=== PATIENT | female | born 1985 | race Caucasian/White ===

== ENCOUNTER 2019-02-11 21:31 | Emergency (ER) | payer OTHER ==
[2019-02-11] MEDS: Sodium Chloride 0.9% 10 ML Syringe FLUSH PRN (22:44)
[2019-02-11] MEDS: HYDROmorphone 1 MG/ML Syringe IVPUSH ONE (22:44)
[2019-02-11] MEDS: diazePAM 5 MG/ML MDV IVPUSH ONE (23:20)
--- NOTE | 2019-02-11 23:36 | EDM.PDOC ---
ED HPI GENERAL MEDICAL PROBLEM - General Chief Complaint: General Stated Complaint: neck and shoulder pain Time Seen by Provider: 02/11/19 22:50 Source of Information: Reports: Patient History Limitations: Reports: No Limitations - History of Present Illness INITIAL COMMENTS - FREE TEXT/NARRATIVE: Pt. presents to ER with complaints of severe neck and R shoulder blade pain. Pt. states that she has had issues with radiculopathy and cervical spinal pain in the past. She sees a chiropractor for this. She denies any trauma. She states that the discomfort started when she was opening a jar at work. No falls or other accidents. Denies any fever or chills. She states that the discomfort is located only in the neck and R upper extremity. Onset: Today Onset Date: 02/11/19 Location: Reports: Neck, Upper Extremity, Right Quality: Reports: Sharp Severity: Severe Improves with: Reports: Cold Therapy Worsens with: Reports: Movement Right Neck Pain Score (Numeric/FACES): 9 - Related Data Allergies Allergy/AdvReac Type Severity Reaction Status Date / Time No Known Allergies Allergy Verified 02/11/19 22:34 Home Meds: Home Meds . [No Known Home Meds] 02/11/19 [History] Past Medical History Musculoskeletal History: Reports: Back Pain, Chronic - Past Surgical History Female Surgical History: Reports: Section Social & Family History - Tobacco Use Smoking Status *Q: Former Smoker Used Tobacco, but Quit: Yes Month/Year Tobacco Last Used: 4 years ED ROS GENERAL - Review of Systems Review Of Systems: See Below Constitutional: Reports: No Symptoms HEENT: Reports: No Symptoms Respiratory: Reports: No Symptoms Cardiovascular: Reports: No Symptoms Endocrine: Reports: No Symptoms GI/Abdominal: Reports: No Symptoms : Reports: No Symptoms Musculoskeletal: Reports: Neck Pain, Shoulder Pain Skin: Reports: No Symptoms Neurological: Reports: Paresthesia (R shoulder posteriorly. Burning sensation.) Psychiatric: Reports: No Symptoms Hematologic/Lymphatic: Reports: No Symptoms Immunologic: Reports: No Symptoms ED EXAM, GENERAL - Physical Exam Exam: See Below Exam Limited By: No Limitations General Appearance: Alert, WD/WN, Moderate Distress Eye Exam: Bilateral Eye: EOMI, PERRL Throat/Mouth: Normal Inspection, Normal Lips, Normal Teeth, Normal Oropharynx Head: Atraumatic, Normocephalic Neck: Limited Range of Motion, Tender Lateral (R sided primarily) Respiratory/Chest: No Respiratory Distress, Lungs Clear, Normal Breath Sounds, No Accessory Muscle Use, Chest Non-Tender Cardiovascular: Normal Peripheral Pulses, Regular Rate, Rhythm, No Edema, No Gallop, No JVD, No Murmur, No Rub Peripheral Pulses: 4+: Radial (L), Radial (R) GI/Abdominal: Soft, Non-Tender, No Organomegaly, No Distention, No Mass (Female) Exam: Deferred Rectal (Female) Exam: Deferred Back Exam: Decreased Range of Motion, Muscle Spasm Extremities: Normal Inspection, No Pedal Edema, Normal Capillary Refill, Limited Range of Motion Neurological: Alert, Oriented, CN II-XII Intact, Normal Cognition, Normal Gait, Normal Reflexes, Other (brachioradialis reflexes are 2+ bilaterally) Course - Vital Signs Last Recorded V/S: Last Vital Signs Temp 37.1 C 02/11/19 22:34 Pulse 72 02/11/19 22:34 Resp 22 H 02/11/19 22:34 BP 119/75 02/11/19 22:34 Pulse Ox 98 02/11/19 22:34 - Orders/Labs/Meds Orders: Active Orders 24 hr Category Date Time Status Acetaminophen/HYDROcodone [Take Home: Acetaminophen/ Med 02/11/19 23:36 Once HYDROcodone 325-10MG] 1 packet PO ONETIME ONE Cyclobenzaprine [Take Home: Cyclobenzaprine 10 MG, 4 Med 02/11/19 23:36 Once Tab Pack] 1 packet PO ONETIME ONE Sodium Chloride 0.9% [Saline Flush] Med 02/11/19 22:16 Active 10 ml FLUSH ASDIRECTED PRN Peripheral IV Insertion Adult [OM.PC] Routine Oth 02/11/19 22:16 Ordered Medication Orders Sodium Chloride (Saline Flush) 10 ml FLUSH ASDIRECTED PRN PRN Reason: Keep Vein Open Last Admin: 02/11/19 22:44 Dose: 10 ml Meds: Medications Generic Name Dose Route Start Last Admin Trade Name Freq PRN Reason Stop Dose Admin Sodium Chloride 10 ml 02/11/19 22:16 02/11/19 22:44 Saline Flush FLUSH 10 ml ASDIRECTED PRN Administration Keep Vein Open Discontinued Medications Generic Name Dose Route Start Last Admin Trade Name Freq PRN Reason Stop Dose Admin Diazepam 5 mg 02/11/19 23:14 02/11/19 23:20 Valium IVPUSH 02/11/19 23:15 5 mg STAT ONE Administration Hydromorphone HCl 1 mg 02/11/19 22:17 02/11/19 22:44 Dilaudid IVPUSH 02/11/19 22:18 1 mg ONETIME ONE Administration Departure - Departure Time of Disposition: 23:42 Disposition: Home, Self-Care 01 Clinical Impression: Radiculopathy of cervical spine - Discharge Information Instructions: Acetaminophen; Hydrocodone tablets or capsules, Cyclobenzaprine tablets, Cervical Strain and Sprain Rehab-SportsMed Referrals: PCP,Not In Area [Primary Care Provider] - Forms: ED Department Discharge Additional Instructions: [place] 10/325mg 1 every 4-6 hours as needed for pain Flexeril 10mg 1 every 6 hours as needed for muscle spasm Follow-up with your chiropractor as needed - My Orders Last 24 Hours: My Active Orders 02/11/19 22:16 Sodium Chloride 0.9% [Saline Flush] 10 ml FLUSH ASDIRECTED PRN Peripheral IV Insertion Adult [OM.PC] Routine 02/11/19 23:36 Acetaminophen/HYDROcodone [Take Home: Acetaminophen/HYDROcodone 325-10MG] 1 packet PO ONETIME ONE Cyclobenzaprine [Take Home: Cyclobenzaprine 10 MG, 4 Tab Pack] 1 packet PO ONETIME ONE - Assessment/Plan Last 24 Hours: My Active Orders 02/11/19 22:16 Sodium Chloride 0.9% [Saline Flush] 10 ml FLUSH ASDIRECTED PRN Peripheral IV Insertion Adult [OM.PC] Routine 02/11/19 23:36 Acetaminophen/HYDROcodone [Take Home: Acetaminophen/HYDROcodone 325-10MG] 1 packet PO ONETIME ONE Cyclobenzaprine [Take Home: Cyclobenzaprine 10 MG, 4 Tab Pack] 1 packet PO ONETIME ONE
[2019-02-11] MEDS: Take Home: Acetaminophen/HYDROcodone 325-10 MG, 5 Tab Pack PO ONE (23:46)
[2019-02-11] MEDS: Take Home: Cyclobenzaprine 10 MG Tab, 4 Tab Pack PO ONE (23:46)
== END 2019-02-11 23:50 | disposition home or self-care (01) ==
LOC: VM.ED 21:31
DX: M54.12 Radiculopathy, cervical region (principal); Z87.891 Personal history of nicotine dependence
CPT/HCPCS: 96374; 96375; 99283; A9270; J1170; J3360